=== PATIENT | male | born 1980 | race African-American/Black ===

== ENCOUNTER 2017-09-16 16:53 | Emergency (ER) | payer OTHER ==
[~2017-09-16] VITALS: Ht 175.3 cm; Wt 136.4 kg
[2017-09-16 17:01] VITALS: BP 142/93
[2017-09-16] MEDS ORDERED: ASPI-556 PO (17:19)
[2017-09-16] MEDS ORDERED: METO50 PO (17:19)
[2017-09-16] MEDS ORDERED: HYDR25TA PO (17:19)
== END 2017-09-16 19:02 | disposition left against medical advice (07) ==
LOC: EMS 16:55
DX: R00.2 Palpitations (principal); M79.89 Other specified soft tissue disorders; I10 Essential (primary) hypertension; F12.90 Cannabis use, unspecified, uncomplicated; Z53.21 Procedure and treatment not carried out due to patient leaving prior to being seen by health care provider
CPT/HCPCS: 93005; 99281